=== PATIENT | female | born 1990 | race African-American/Black ===

== ENCOUNTER 2020-06-06 15:14 | Inpatient (IN) ==
[2020-06-06 15:57] LABS: Bilirubin,Urine Negative (Negative); Blood, Urine Negative (Negative); Glucose,Urine (UA) Negative (Negative); Ketones,Urine 20 mg/dL (Negative); Mucus,Urine Occasional /LPF (Occasional); Nitrite,Urine Negative (Negative); Protein,Urine Negative; RBC,Urine 1 /HPF (0-4); Squamous Epithelial Cell,Urine Occasional /HPF (0-10); Urine Appearance CLEAR (Clear); Urine Color Yellow (Yellow); Urine Specific Gravity 1.016 (1.001-1.035); Urine Urobilinogen < 2.0 EU/DL (0.2-1.0); WBC,Urine 1 /HPF (0-6)
[2020-06-06] MEDS ORDERED: CITRIC ACID/SODIUM CITRATE 30 ML UDCUP PO ONE (16:48)
[2020-06-06] MEDS ORDERED: ceFAZolin 3,000 MG in SYRINGE 1 EACH IV ONE (16:48)
[2020-06-06] MEDS ORDERED: FAMOTIDINE 20 MG/2 ML VIAL IV ONE (16:48)
[2020-06-06 17:12] LABS: Basophils % 0.1 % (0.0-0.8); Eosinophils % 0.2 % (0.00-10.9); Hematocrit 31.8 VOL% (35.7-47.0); Hemoglobin 10.1 GM/DL (12.0-16.0); Immature Granulocytes % 0.6 %; Immature Granulocytes Absolute 0.06 #; Lymphocytes # 1.5 10*3/uL (1.4-4.0); Lymphocytes % 15.7 % (21.3-54.2); Mean Corpuscular HGB Conc 31.8 GM/DL (32-36); Mean Corpuscular Volume 94.6 FL (87-102); Mean Platelet Volume 9.9 FL (9.6-12.0); Monocytes % 4.9 % (1.7-12.7); Neutrophils % 78.5 % (38.7-73.9); Platelet Count 285 T/CUMM (130-400); Red Blood Count 3.36 MC/CUMM (3.8-5.5); Red Cell Distribution Width 13.1 % (9.3-17.3); White Blood Count 9.7 T/CUMM (4-12)
[2020-06-06] MEDS ORDERED: OXYTOCIN/LR 20 UNIT/1,000 ML BAG IV ONE ×2 (17:23→20:11)
[2020-06-06] MEDS: LACTATED RINGERS 1,000 ML IV SCH ×4 (17:31→23:39)
[2020-06-06 17:33] LABS: INR 0.9; PT Patient Result 9.9 SECS (9.8-11.9); Partial Thromboplastin Time 28.7 SECS (23.9-33.8)
[2020-06-06 17:36] LABS: Albumin 2.5 G/DL (3.4-5.0); Bilirubin,Total 0.6 MG/DL (0.2-1.0); Calcium 8.3 MG/DL (8.5-10.1); Osmolality,Calculated 270.7 MOS/KG (273-304); Potassium 3.8 MMOL/L (3.5-5.1); Total Protein 6.5 G/DL (5.0-7.5)
[2020-06-06] MEDS ORDERED: MORPHINE 10 MG/10 ML VIAL ONE (18:48)
[2020-06-06] MEDS ORDERED: ONDANSETRON 4 MG/2 ML VIAL ONE (18:48)
[2020-06-06] MEDS ORDERED: CARBOPROST TROMETHAMINE 250 MCG/ML AMP IM ONE (19:11)
[2020-06-06] MEDS ORDERED: miSOPROStoL 200 MCG TABLET ONE (19:11)
[2020-06-06] MEDS ORDERED: MIDAZOLAM 2 MG/2 ML VIAL ONE ×2 (19:33→19:51)
[2020-06-06] MEDS ORDERED: fentaNYL 250 MCG/5 ML VIAL ONE (19:34)
[2020-06-06] MEDS ORDERED: SEVOFLURANE 1 UNIT/15 MINUTE INH ONE ×3 (19:35→20:38)
[2020-06-06] MEDS ORDERED: ROCURONIUM 50 MG/5 ML VIAL IV ONE (19:35)
[2020-06-06] MEDS ORDERED: SUCCINYLCHOLINE 200 MG/10 ML VIAL ONE (19:35)
[2020-06-06] MEDS ORDERED: SUGAMMADEX 200 MG/2 ML VIAL IV ONE (19:48)
[2020-06-06] MEDS ORDERED: RHO(D) IMMUNE GLOBULIN 300 MCG SYRINGE IM ONE (20:11)
[2020-06-06] MEDS ORDERED: ACETAMINOPHEN 325 MG TABLET PO PRN (20:11)
[2020-06-06] MEDS ORDERED: ONDANSETRON 4 MG/2 ML VIAL IV PRN (20:11)
[2020-06-06] MEDS ORDERED: LACTATED RINGERS 1,000 ML IV SCH (20:30)
[2020-06-06] MEDS ORDERED: KETOROLAC 30 MG/1 ML VIAL ONE (20:38)
[2020-06-06] MEDS ORDERED: PROMETHAZINE 25 MG/1 ML VIAL ONE (20:38)
[2020-06-06] MEDS ORDERED: LABETALOL 20 MG/4 ML SYRINGE IV ONE ×2 (20:39→23:27)
[2020-06-06] MEDS ORDERED: LACTATED RINGERS 1,000 ML IV ONE (20:39)
[2020-06-06] MEDS ORDERED: MAGNESIUM SULF RIDER 100 ML IV ONE (20:43)
[2020-06-06 20:50] LABS: Cord Arterial Blood HCO3 19.8 MMOL/L
[2020-06-06 20:53] LABS: Cord Venous Blood HCO3 21.1 MMOL/L; Cord Venous Blood PCO2 44.9 MMHG; Cord Venous Blood PO2 45.9
[2020-06-06] MEDS ORDERED: MAGNESIUM SULF DRIP 40 GM/1,000 ML ML IV SCH (21:00)
[2020-06-06 21:07] LABS: Barbiturates Screen,Urine Negative (Negative); Benzodiazepines Screen,Urine Negative (Negative); Cannabinoid Screen,Urine Positive (Negative); Opiate Screen,Urine Negative (Negative); Phencyclidine Screen,Urine Negative (Negative)
[2020-06-06] MEDS ORDERED: hydrALAZINE 20 MG/1 ML VIAL IV ONE ×2 (21:49→22:17)
[2020-06-07] MEDS: ceFAZolin 1,000 MG in SYRINGE 1 EACH IV SCH ×2 (03:08→10:00)
[2020-06-07 07:03] LABS: Basophils % 0.2 % (0.0-0.8); Eosinophils % 0.2 % (0.00-10.9); Hematocrit 27.8 VOL% (35.7-47.0); Immature Granulocytes % 0.5 %; Immature Granulocytes Absolute 0.06 #; Lymphocytes # 1.5 10*3/uL (1.4-4.0); Lymphocytes % 12.1 % (21.3-54.2); Mean Corpuscular HGB Conc 32.4 GM/DL (32-36); Mean Corpuscular Volume 94.2 FL (87-102); Monocytes % 5.5 % (1.7-12.7); Neutrophils % 81.5 % (38.7-73.9); Platelet Count 262 T/CUMM (130-400); Red Blood Count 2.95 MC/CUMM (3.8-5.5); White Blood Count 12.3 T/CUMM (4-12)
[2020-06-07] MEDS: IBUPROFEN 800 MG TABLET PO PRN ×2 (08:12→18:28)
[2020-06-07] MEDS: DOCUSATE SODIUM 100 MG CAPSULE PO SCH ×3 (08:12→20:30)
[2020-06-07] MEDS: MULTIVITAMIN (PRENATAL) TABLET PO SCH (08:13)
[2020-06-07] MEDS: LABETALOL 200 MG TABLET PO SCH ×2 (08:13→20:30)
[2020-06-07] MEDS: SIMETHICONE CHEW 80 MG TABLET PO PRN (20:30)
[2020-06-08] MEDS: IBUPROFEN 800 MG TABLET PO PRN (04:13)
[2020-06-08] MEDS: SIMETHICONE CHEW 80 MG TABLET PO PRN (06:07)
[2020-06-08] MEDS: MULTIVITAMIN (PRENATAL) TABLET PO SCH (08:11)
[2020-06-08] MEDS: LABETALOL 200 MG TABLET PO SCH ×2 (08:11→21:19)
[2020-06-08] MEDS: DOCUSATE SODIUM 100 MG CAPSULE PO SCH ×2 (08:11→21:19)
[2020-06-08] MEDS: MAGNESIUM HYDROXIDE SUSP 30 ML UDCUP PO PRN ×2 (08:20→21:20)
[2020-06-08 21:19] VITALS: BP 139/80
[2020-06-08] MEDS ORDERED: DIPH/TET/ACEL PERT BOOSTER VACCINE 0.5 ML VIAL IM ONE (21:47)
== END 2020-06-08 22:10 | disposition home or self-care (01) | DRG 540 ==
LOC: N.LDOUT 15:14 → N.LD 15:18 → N.OB 06-08 14:00
PROVIDERS: ADMIT Obstetrics & Gynecology; ATTEND Obstetrics & Gynecology
PROC: LDCSECT (ICD-10-PCS; 2020-06-06 19:05)